=== PATIENT | female | born 1945 | race Caucasian/White ===

== ENCOUNTER 2023-12-16 13:35 | Outpatient (AMB) | payer MEDICARE, SELFPAY ==
[2023-12-16 13:38] VITALS: BP 132/70; PULSE 86; O2SAT 97; BMI 24.8
--- NOTE | 2023-12-16 13:38 | MHC.PC.OV ---
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 Allergies metoclopramide [From Reglan] Adverse Reaction (Severe, Verified 12/16/23 13:42) Anxiety and Fatigue Medication List - Last Reconciled 12/16/23 by Azra Abreu MD calcium carbonate (Calcium) 600 mg PO DAILY cholecalciferol (vitamin D3) 25 mcg PO DAILY losartan-hydrochlorothiazide 100-12.5 mg 1 tab PO DAILY lovastatin 20 mg PO DAILY meloxicam 7.5 mg PO BID multivitamin 1 tab PO DAILY omeprazole 20 mg PO DAILY Tobacco use date assessed: 12/16/23 Fall risk assessment: No Falls in past year Last assessed Fall Risk: 12/16/23 Dental Screening Dental Screen Date: 12/16/23 Did you have a dental visit in the last 12 months?: Yes Did you have a dental problem in the last 6 months where you did not have access to dental care?: No Was dental information given to patient?: Patient has dentist 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 Sister Pacemaker Sister Breast cancer Bladder cancer Sister Breast cancer Pacemaker Daughter No problems noted. Son No problems noted. Social History (Updated 12/16/23 @ 14:39 by Azra Abreu MD) Housing: Condominium Alcohol intake: current Comment: once Q 2 week glass of wine Patient Tobacco Use Status: Former Tobacco user Tobacco use type: Cigarette Years Smoked: quit 1969 e-Cigarette/Vaping Use: Never Used Second Hand Smoke Exposure: No service: No Current occupational status: retired Current occupational exposures/hazards: No Cognitive needs: No Hearing needs: No Vision needs: Yes Questionnaire PHQ-9 Over the last 2 weeks, how often have you been bothered by any of the following problems? 1. Little interest or pleasure in doing things: not at all 2. Feeling down, depressed, or hopeless: not at all 3. Trouble falling or staying asleep, or sleeping too much: not at all 4. Feeling tired or having little energy: not at all 5. Poor appetite or overeating: not at all 6. Feeling bad about yourself - or that you are a failure or have let yourself or your family down: not at all 7. Trouble concentrating on things, such as reading the newspaper or watching television: not at all 8. Moving or speaking so slowly that other people could have noticed. Or the opposite - being so fidgety or restless that you have been moving around a lot more than usual: not at all 9. Thoughts that you would be better off or of hurting yourself in some way: not at all Total score: 0 Depression Screening Interpretation: Negative Depression Screening Done: Yes Source: Developed by Drs. Talha Escobedo, Brea Thomas, Stalin Schultz and colleagues, with an educational carlyle from [employer]. Thrive Questionnaire Date Thrive assessed: 12/16/23 I am a: Patient What is your living situation today?: I have a steady place to live Within the past 12 months, did the food you bought not last and you didn't have the money to get more?: Never true Within the past 12 months, did you worry whether your food would run out before you got money to buy more?: Never true Do you have trouble paying for medicines?: No Do you have trouble getting transportation to medical appointments?: No Do you have trouble paying your heating and electricity bill?: No Do you have trouble taking care of your child, family member or friend?: No Do you have trouble with day-to-day activities such as bathing, preparing meals, shopping, managing finances, etc.?: No Are you currently unemployed and looking for a job?: No Are you interested in more education?: No Currently or been in a relationship where the following occur: no concerns reported THRIVE Score: 0 AUDIT C Alcohol Use Questionnaire (AUDIT-C) 1. How often do you have a drink containing alcohol?: 2-3 times a week 2. How many drinks containing alcohol do you have on a typical day when you are drinking?: 1 or 2 3. How often do you have six or more drinks on one occasion?: Never Total Score: 3 SHITAL-7 AMB Questionnaire SHITAL-7 Date SHITAL - 7 assessed: 12/16/23 Feeling nervous, anxious, or on edge: 0 = Not at all Not being able to stop or control worryin = Not at all Worrying too much about different things: 0 = Not at all Trouble relaxin = Not at all Being so restless that it is hard to sit still: 0 = Not at all Becoming easily annoyed or irritable: 0 = Not at all Feeling afraid as if something awful might happen: 0 = Not at all Total SHITAL-7 score (0-4 normal; 5-9 mild; 10-14 moderate; 15-21 severe): 0 Source: Developed by Drs. Talha Escobedo, Brea Thomas, Stalin Schultz and colleagues, with an educational carlyle from [employer]. Physical exam (Primary Care) Vital Signs: Last Vital Signs Pulse 86 12/16/23 13:38 BP 132/70 12/16/23 13:38 Pulse Ox 97 12/16/23 13:38 Oxygen Delivery Method Room Air 12/16/23 13:38 BMI result Body Mass Index 24.8 Tobacco/Smoking Status: Tobacco use Status Tobacco use date assessed 12/16/23 12/16/23 13:55 Patient Tobacco Use Status Former Tobacco user 12/16/23 14:39 Tobacco use type Cigarette 12/16/23 14:39 e-Cigarette/Vaping Use Never Used 12/16/23 14:39 PHQ-9: PHQ-9 Score PHQ-9: Total score 0 12/16/23 14:36 Depression Screening Interpretation: Negative Thrive Assessment: Date of Thrive Assessment Date Thrive assessed 12/16/23 12/16/23 13:55 Currently or been in a relationship where the following occur: no concerns reported Const General: alert; No acute distress Eyes Conjunctivae: conjunctivae normal Resp Auscultation: clear to auscultation bilaterally Cardio Rate: regular rate Rhythm: regular rhythm GI Inspection: Yes normal to inspection Extrem General: Yes normal to inspection and No edema Immunizations pneumoc 20-galilea conj-dip cr(PF) 0.5 mL IM syringe Performing Provider: Azra Abreu MD [facility] [place] [facility] Administered by: URIAH Keyes on 12/16/23 15:02 Dose Route Admin Location Dispensed Lot Number Expiration Date N[employer] 0.5 mL IM Left Deltoid 0.5 mL [id number] 10/31/24 [employer] VIS Given Date VIS Provided VIS Publication Date 12/16/23 Single Vaccine 21 Eligibility Eligibility Date Funding Source Not [facility] Eligible 12/16/23 Private Assessment and Plan Assessment & Plan (1) Hypertension: Code(s): I10 - Essential (primary) hypertension Plan: Continue with blood pressure medication. Decrease salt intake and exercise presently on losartan hydrochlorothiazide. (2) GERD (gastroesophageal reflux disease): Code(s): K21.9 - Gastro-esophageal reflux disease without esophagitis Plan: Avoid the foods that causes that usually spicy foods, tomato products, juices, coffee, soda and foods that your sensitive to. After eating do not lie down, allow 3-4 hours before in lie down. And keep the head of bed above 30 degrees to avoid the acid from going up. (3) Hypercholesterolemia: Code(s): E78.00 - Pure hypercholesterolemia, unspecified Plan: Avoid fried foods, chicken skin, eggs, butter margarine, pastries and meat. Be it pork or beef they have a lot of cholesterol presently on lovastatin 20 mg once a day (4) Osteoporosis: Comment: 06/2012 Code(s): M81.0 - Age-related osteoporosis without current pathological fracture (5) Impaired fasting blood sugar: Code(s): R73.01 - Impaired fasting glucose (6) Osteoarthritis: Comment: hand, knee elbow Code(s): M19.90 - Unspecified osteoarthritis, unspecified site (7) Breast cancer screening by mammogram: Code(s): Z12.31 - Encounter for screening mammogram for malignant neoplasm of breast Orders: Orders Pneumococcal 20 Immunization Today Z23 - Encounter for immunization MM tomosynthesis screening BI Today Z12.31 - Encounter for screening mammogram for malignant neoplasm of breast Medications: New losartan-hydrochlorothiazide 100-12.5 mg 1 tab PO DAILY 90 tabs 2RF I10 - Essential (primary) hypertension meloxicam 7.5 mg PO BID 90 tabs 2RF M19.90 - Unspecified osteoarthritis, unspecified site pneumoc 20-galilea conj-dip cr(PF) 0.5 mL IM ONCE 0.5 mL 0RF Z23 - Encounter for immunization lovastatin 20 mg PO DAILY 90 tabs 2RF E78.00 - Pure hypercholesterolemia, unspecified omeprazole 20 mg PO DAILY 90 caps 2RF K21.9 - Gastro-esophageal reflux disease without esophagitis Coding Level of Care Code New Pt Level 4 (79342) Diagnoses Hypertension I10 GERD (gastroesophageal reflux disease) K21.9 Hypercholesterolemia E78.00 Osteoporosis M81.0 Impaired fasting blood sugar R73.01 Osteoarthritis M19.90 Breast cancer screening by mammogram Z12.31
== END 2023-12-16 15:07 | disposition home or self-care (01) ==
PROVIDERS: PCP Internal Medicine; Visit Provider Internal Medicine
DX: I10 Essential (primary) hypertension (principal); K21.9 Gastro-esophageal reflux disease without esophagitis; E78.00 Pure hypercholesterolemia, unspecified; M81.0 Age-related osteoporosis without current pathological fracture; R73.01 Impaired fasting glucose; M19.90 Unspecified osteoarthritis, unspecified site; Z12.31 Encounter for screening mammogram for malignant neoplasm of breast; Z23 Encounter for immunization
CPT/HCPCS: 90471; 90677; 99204

== ENCOUNTER 2023-12-30 08:13 | Outpatient (REF) | payer MEDICARE, SELFPAY ==
--- NOTE | ~2023-12-30 | MM_ITS ---
EXAMINATION: MM SCREENING DIGITAL BREAST TOMOSYNTHESIS, BILATERAL CLINICAL INFORMATION: Screening. Asymptomatic. The patient is status post benign right excision in the remote past. COMPARISON: Mammography: This study is compared with prior exams dating back to 2019. TECHNIQUE: Digital breast tomosynthesis is performed in both the craniocaudal and mediolateral oblique views along with computer-aided detection (CAD). Synthesized 2D images are generated from the tomosynthesis. FINDINGS: There are scattered areas of fibroglandular density (ACR BI-RADS breast composition Category b). There are no significant masses, abnormal calcifications, or other abnormalities. There is mild postsurgical change in the retroareolar region of the right breast from prior remote benign excision. MM/MM tomosynthesis screening BI IMPRESSION: No mammographic evidence of malignancy. ASSESSMENT: BI-RADS BI-RADS 2 - Benign Findings RECOMMENDATION: Routine annual mammography screening. 1 year F/U This examination should not preclude the clinical evaluation of a suspicious palpable abnormality. This patient's information was entered into a reminder system with a target due date for their next mammogram.
== END 2023-12-30 08:14 | disposition home or self-care (01) ==
LOC: HO.MAMMO 08:13
PROVIDERS: PCP Internal Medicine; Visit Provider Internal Medicine
DX: Z12.31 Encounter for screening mammogram for malignant neoplasm of breast (principal)
CPT/HCPCS: 77063; 77067

== ENCOUNTER → 2023-12-30 08:30 | Outpatient (BNV) | payer MEDICARE, SELFPAY | PROVIDERS: PCP Internal Medicine; Visit Provider Radiology Diagnostic Radiology | DX: Z12.31 Encounter for screening mammogram for malignant neoplasm of breast (principal) | CPT/HCPCS: 77063; 77067 ==

== ENCOUNTER 2024-05-25 11:24 | Outpatient (AMB) | payer MEDICARE, SELFPAY ==
[2024-05-25 11:26] VITALS: BP 144/88; PULSE 77; O2SAT 97; BMI 25.2
--- NOTE | 2024-05-25 11:26 | MHC.PC.OV ---
Vital Signs 05/25/24 11:26 Height 4 ft 11 in Weight 125 lb BMI 25.2 BP 144/88 H Blood Pressure Location Lt brachial Position Sitting Pulse 77 Pulse Source Pulse Oximeter Pulse Oximetry (%) 97 Oxygen Delivery Method Room Air Intake Visit Reasons: PE Assistant Commissioner Required: No Accompanied by: Self / Same As Patient Allergies metoclopramide [From Reglan] Adverse Reaction (Severe, Verified 05/25/24 11:37) Anxiety and Fatigue Medication List - Last Reconciled 05/25/24 by Livier Rios PA-C calcium carbonate (Calcium 600) 600 mg PO DAILY cholecalciferol (vitamin D3) 25 mcg PO DAILY losartan-hydrochlorothiazide 100-12.5 mg 1 tab PO DAILY lovastatin 20 mg PO DAILY meloxicam 7.5 mg PO BID multivitamin 1 tab PO DAILY omeprazole 20 mg PO DAILY Tobacco use date assessed: 12/16/23 Fall risk assessment: No Falls in past year Last assessed Fall Risk: 05/25/24 Dental Screening Dental Screen Date: 12/16/23 HPI PE HPI Details 78-year-old female with past medical history of hypertension, GERD, hypercholesterolemia, peptic ulcer disease, impaired glucose tolerance last seen by Dr. Abreu coming in for annual exam. Patient completed mammogram 01/26/2024 BI-RADS 2 follow up in 1 year. She tells us she is feeling generally well prior to leaving [place] she did have a hearing test that showed borderline hearing loss but does not feel she has not issue with hearing at this time. She walks 2-3 times per week for exercise. She completed her bone density scan in 2022 in [place]. She does mentioned her blood pressures at home have been in the 100s to 120s systolic and 60s to 80s diastolic and would like to take off the hydrochlorothiazide as it increases the frequency of urination. 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 Sister Pacemaker Sister Breast cancer Bladder cancer Sister Breast cancer Pacemaker Daughter No problems noted. Son No problems noted. Social History Housing: Condominium Alcohol intake: current Comment: once Q 2 week glass of wine Patient Tobacco Use Status: Former Tobacco user Tobacco use type: Cigarette Years Smoked: quit 1970 e-Cigarette/Vaping Use: Never Used Second Hand Smoke Exposure: No service: No Current occupational status: retired Current occupational exposures/hazards: No Cognitive needs: No Hearing needs: No Vision needs: Yes Questionnaire PHQ-9 Over the last 2 weeks, how often have you been bothered by any of the following problems? 1. Little interest or pleasure in doing things: not at all 2. Feeling down, depressed, or hopeless: not at all 3. Trouble falling or staying asleep, or sleeping too much: not at all 4. Feeling tired or having little energy: not at all 5. Poor appetite or overeating: not at all 6. Feeling bad about yourself - or that you are a failure or have let yourself or your family down: not at all 7. Trouble concentrating on things, such as reading the newspaper or watching television: not at all 8. Moving or speaking so slowly that other people could have noticed. Or the opposite - being so fidgety or restless that you have been moving around a lot more than usual: not at all 9. Thoughts that you would be better off or of hurting yourself in some way: not at all Total score: 0 Depression Screening Interpretation: Negative Depression Screening Done: Yes Source: Developed by Drs. Talha Escobedo, Brea Thomas, Stalin Schultz and colleagues, with an educational carlyle from [employer] acquired by [employer]. Thrive Questionnaire Date Thrive assessed: 05/23/24 I am a: Patient What is your living situation today?: I have a steady place to live Within the past 12 months, did the food you bought not last and you didn't have the money to get more?: Never true Within the past 12 months, did you worry whether your food would run out before you got money to buy more?: Never true Do you have trouble paying for medicines?: No Do you have trouble getting transportation to medical appointments?: No Do you have trouble paying your heating and electricity bill?: No Do you have trouble taking care of your child, family member or friend?: No Do you have trouble with day-to-day activities such as bathing, preparing meals, shopping, managing finances, etc.?: Yes Are you currently unemployed and looking for a job?: No Are you interested in more education?: No Please select the resources that you would like help with: None Currently or been in a relationship where the following occur: No concerns reported THRIVE Score: 0 AUDIT C Alcohol Use Questionnaire (AUDIT-C) 1. How often do you have a drink containing alcohol?: Monthly or less 2. How many drinks containing alcohol do you have on a typical day when you are drinking?: 1 or 2 3. How often do you have six or more drinks on one occasion?: Never Total Score: 1 SHITAL-7 AMB Questionnaire SHITAL-7 Date SHITAL - 7 assessed: 12/16/23 Feeling nervous, anxious, or on edge: 0 = Not at all Not being able to stop or control worryin = Not at all Worrying too much about different things: 0 = Not at all Trouble relaxin = Not at all Being so restless that it is hard to sit still: 0 = Not at all Becoming easily annoyed or irritable: 0 = Not at all Feeling afraid as if something awful might happen: 0 = Not at all Total SHITAL-7 score (0-4 normal; 5-9 mild; 10-14 moderate; 15-21 severe): 0 Source: Developed by Drs. Talha Escobedo, Brea Thomas, Stalin Schultz and colleagues, with an educational carlyle from [employer] acquired by [employer]. Review of Systems Const Denies body aches, Denies fatigue, Denies fever(s), Denies frequent falls, Denies headache(s) and Denies weakness Eyes Reports no additional complaints, Denies change in vision and Reports requires corrective lenses ENT Denies dysphagia, Denies dizziness, Denies facial pain, Denies headache(s), Denies nasal congestion and Denies odynophagia Card Denies chest pain, Denies syncope, Denies irregular heart rhythm, Denies leg edema, Denies lightheadedness and Denies dyspnea Resp Denies cough and Denies dyspnea GI Denies constipation, Denies dysphagia, Denies dyspepsia, Denies diarrhea, Denies nausea, Denies odynophagia and Denies vomiting Denies urinary frequency, Denies dysuria, Denies urinary hesitancy and Denies urinary urgency Musc Denies back pain and Denies myalgias Skin/Breast Reports system reviewed and no additional complaints, except as documented Neuro Denies dizziness, Denies syncope, Denies frequent falls, Denies headache(s) and Denies weakness Psych Reports no additional complaints Endo Denies fatigue Physical exam (Primary Care) Vital Signs: Last Vital Signs Pulse 77 05/25/24 11:26 BP 144/88 H 05/25/24 11:26 Pulse Ox 97 05/25/24 11:26 Oxygen Delivery Method Room Air 05/25/24 11:26 BMI result Body Mass Index 25.2 Tobacco/Smoking Status: Tobacco use Status Tobacco use date assessed 12/16/23 05/25/24 11:31 Patient Tobacco Use Status Former Tobacco user 05/25/24 11:31 Tobacco use type Cigarette 05/25/24 11:31 e-Cigarette/Vaping Use Never Used 05/25/24 11:31 PHQ-9: PHQ-9 Score PHQ-9: Total score 0 05/25/24 11:31 Depression Screening Interpretation: Negative Thrive Assessment: Date of Thrive Assessment Date Thrive assessed 05/23/24 05/25/24 11:31 Currently or been in a relationship where the following occur: No concerns reported Const General: cooperative, healthy appearing, comfortable and no acute distress Orientation/consciousness: patient oriented x3 HENMT Head: Yes normocephalic Ears: hearing grossly normal bilaterally, external ears normal, TM's normal bilaterally and EAC's normal General nose exam: Normal external nose present Face and sinus: Yes normal facial exam and Yes sinuses nontender Mouth: Normal oral and palatal mucosa present and tongue normal Throat: Yes posterior oropharynx normal Eyes General: appearance normal, both eyes and all related structures Conjunctivae: conjunctivae normal Pupils: Equal, round and reactive pupils present EOM: EOMs intact bilaterally and No Nystagmus present Neck Neck: Yes normal visual inspection, Yes full ROM and Yes no lymphadenopathy Chest Chest palpation & inspection: normal inspection of the chest Resp Effort & Inspection: normal respiratory effort Auscultation: clear to auscultation bilaterally, no crackles, no rales, no rhonchi, no wheezes and breath sounds present Cardio Rate: regular rate Rhythm: regular rhythm Peripheral pulses: radial pulses present and dorsalis pedis present GI Inspection: Yes normal to inspection and No Abdominal wall edema Palpation (GI): Soft to palpation, not firm and nontender Auscultation: normal bowel sounds Rectal Exam - Female: deferred General: Yes no CVA tenderness Back/Spine/Pelvis Back: no CVA tenderness Skin General skin exam: no rashes or lesions noted Neuro General: patient oriented x3 Cranial nerves: Yes Equal, round and reactive pupils present, Yes Midline tongue present, Yes Ability to bilaterally elevate shoulders present and No Nystagmus present Gait exam (Neuro): Normal gait present Extrem General: Yes normal to inspection, Yes full ROM, No no pedal edema and No edema Psych Speech and movement: Normal speech and movement present Affect: normal affect Insight: Good insight present (Psych) Judgement: Good judgement present (Psych) Assessment and Plan Assessment & Plan (1) Breast cancer screening by mammogram: Code(s): Z12.31 - Encounter for screening mammogram for malignant neoplasm of breast Plan: Completed January 2024 BI-RADS 2 follow up in 1 year. (2) Osteoarthritis: Comment: hand, knee elbow Code(s): M19.90 - Unspecified osteoarthritis, unspecified site Plan: No concerns at this time continue taking meloxicam twice daily as needed. (3) Impaired fasting blood sugar: Code(s): R73.01 - Impaired fasting glucose Plan: Decrease the amount of carbohydrates such as pasta, bread, rice, and potatoes and limit the amount of sweets. Although fruits are generally healthy they should be eaten in moderation as they are still high in sugar. Hemoglobin A1c goal of less than 7%. Ordered for updated blood work and not currently on medical management. (4) Osteoporosis: Comment: 06/2012 Code(s): M81.0 - Age-related osteoporosis without current pathological fracture Plan: Continue on calcium and vitamin D3 supplement and will be due for bone density scan next year. (5) Hypercholesterolemia: Code(s): E78.00 - Pure hypercholesterolemia, unspecified Plan: Ordered for updated blood work. Avoid foods that are high in cholesterol such as red meat, fried foods, eggs and baked goods. Triglyceride goal of less than 150 and LDL goal of less than 100. Continue on lovastatin 20 mg daily. (6) GERD (gastroesophageal reflux disease): Code(s): K21.9 - Gastro-esophageal reflux disease without esophagitis Plan: Avoid trigger foods such as citrus, tomato products, soda, caffeine, spicy foods and other foods that may be irritating to your stomach. Avoid laying flat 3-4 hours after eating and elevate the head of the bed 30 degrees to prevent acid from moving into the esophagus. Continue on omeprazole. (7) Hypertension: Code(s): I10 - Essential (primary) hypertension Plan: Blood pressures at home have been in the 100s to 120 systolic and 60s to 80s diastolic. She did provide us with a list of blood pressures today which have all been within range. We will discontinue hydrochlorothiazide at patient request. Continue to monitor blood pressures at home and follow up in 1 month for re-evaluation. Continue on losartan 100 mg p.o. daily. (8) Annual physical exam: Code(s): Z00.00 - Encounter for general adult medical examination without abnormal findings Plan: Patient is up-to-date on all routine screenings and vaccinations for her age. Updated blood work ordered and we will follow up in 1 month for repeat blood pressure check. Plan This note was constructed using voice recognition software. While every effort has been made to ensure accuracy and office helper clerical, still areas may have been included sometimes these areas may affect the content or meeting of the given symptoms. Total time spent caring for the patient today was 30 minutes. This includes time spent before the visit reviewing the chart, time spent during the visit, and time spent after the visit and documentation. Orders: Orders Comprehensive Met. Panel Today Z00.00 - Encounter for general adult medical examination without abnormal findings Free T4 (Free Thyroxine) Today Z00.00 - Encounter for general adult medical examination without abnormal findings TSH reflex Free T4 Today Z00.00 - Encounter for general adult medical examination without abnormal findings UA CC w/rflx Micro + Cult Today R35.89 - Other polyuria Vitamin B12 and Folate Today Z00.00 - Encounter for general adult medical examination without abnormal findings Vitamin D 25-OH (D2 and D3) Today Z00.00 - Encounter for general adult medical examination without abnormal findings Complete Blood Count Auto Diff Today Z00.00 - Encounter for general adult medical examination without abnormal findings Lipid Panel Today Z00.00 - Encounter for general adult medical examination without abnormal findings Hemoglobin A1c Today Z00.00 - Encounter for general adult medical examination without abnormal findings Medications: New losartan 100 mg PO DAILY 30 tabs 0RF Refilled meloxicam 7.5 mg PO BID 180 tabs 2RF M19.90 - Unspecified osteoarthritis, unspecified site On Hold losartan-hydrochlorothiazide 100-12.5 mg Hold Comment: Dose Change 1 tab PO DAILY 90 tabs 2RF I10 - Essential (primary) hypertension Coding Level of Care Code Est Pt Prev Care >65y(79283) Diagnoses Breast cancer screening by mammogram Z12.31 Osteoarthritis M19.90 Impaired fasting blood sugar R73.01 Osteoporosis M81.0 Hypercholesterolemia E78.00 GERD (gastroesophageal reflux disease) K21.9 Hypertension I10 Annual physical exam Z00.00
== END 2024-05-25 11:58 | disposition home or self-care (01) ==
PROVIDERS: PCP Internal Medicine
DX: Z12.31 Encounter for screening mammogram for malignant neoplasm of breast (principal); M19.90 Unspecified osteoarthritis, unspecified site; R73.01 Impaired fasting glucose; M81.0 Age-related osteoporosis without current pathological fracture; E78.00 Pure hypercholesterolemia, unspecified; K21.9 Gastro-esophageal reflux disease without esophagitis; I10 Essential (primary) hypertension; Z00.00 Encounter for general adult medical examination without abnormal findings

== ENCOUNTER → 2024-05-25 11:24 | Outpatient (BNVA) | payer MEDICARE, SELFPAY | PROVIDERS: PCP Internal Medicine ==

== ENCOUNTER 2024-06-02 10:10 | Outpatient (REF) | payer MEDICARE, SELFPAY ==
[2024-06-02 10:37] LABS: MANUAL DIFF FLAG NO
[2024-06-02 10:54] LABS: Basophils Percent Auto 0.4 % (0-2); Eosinophils Absolute Auto 0.6 X10*3/uL (0.0-0.4); Eosinophils Percent Auto 7.7 % (0-4); Hematocrit 36.4 % (37.0-47.0); Hemoglobin 12.6 g/dl (12.0-16.0); Imm Gran Abs Auto 0.02 X10*3/uL (0.00-0.03); Imm Gran Pct Auto 0.3 % (0.0-0.4); Lymphocytes Absolute Auto 1.7 X10*3/uL (1.2-4.9); Lymphocytes Percent Auto 22.7 % (20-40); Mean Corpuscular HGB Conc 34.6 g/dl (31.0-35.0); Mean Corpuscular Hemoglobin 33.4 pg (27.0-33.0); Mean Corpuscular Volume 96.6 fL (80.0-98.0); Mean Platelet Volume 10.7 fL (9.4-12.3); Monocytes Absolute Auto 0.7 X10*3/uL (0.1-1.2); Monocytes Percent Auto 9.9 % (2-11); Neutrophils Absolute Auto 4.4 x10*3/uL (2.0-8.3); Platelet Count 338 X10*3/uL (160-400); Red Blood Count 3.77 X10*6/uL (4.20-5.50); Red Cell Distribution Width 13.1 % (11.0-16.0); White Blood Count 7.4 X10*3/uL (4.8-10.8)
[2024-06-02 10:56] LABS: Estimated Average Glucose 117 mg/dL; Hemoglobin A1C 121.6147 umol/L; Hemoglobin A1c % 5.7 % (<6.0); Total Hemoglobin (HGBA1C) 3123.6601 umol/L
[2024-06-02 10:57] LABS: Appearance Urine Clear; Color Urine Yellow; Glucose Urine UA Negative (Negative); Leukocyte Esterase Urine Negative (Negative); Nitrite Urine Negative (Negative); Specific Gravity - Urine 1.015 (1.005-1.025); UMIC TRIGGER UACC YES; Urine Blood Trace (Negative); Urine Ketones Negative (Negative); Urine Protein Negative (Neg-Trace)
[2024-06-02 11:03] LABS: Bacteria Urine None Seen (None Seen); Hyaline Casts Urine 0-2 /LPF (0-2); Squamous Epithelial Cell Urine 0-2 /HPF (0-2); WBC Urine 0-5 /HPF (0-5)
[2024-06-02 11:09] LABS: Alanine Aminotransferase 18 U/L (0-31); Albumin Level 4.3 g/dL (3.5-5.0); Alkaline Phosphatase 69 U/L (39-117); Anion Gap 13 (12-20); Aspartate Amino Transferase 26 U/L (5-31); Bilirubin Total 0.6 mg/dL (0.0-1.0); Blood Urea Nitrogen 28 mg/dL (9-16); Calcium 10.3 mg/dL (8.4-10.2); Carbon Dioxide 25 mmol/L (22-29); Chloride 109 mmol/L (96-108); Cholesterol 182 mg/dL (<200); Estimated Glomerular Filt Rate 50; Glucose Random 103 mg/dL (60-115); HDL Cholesterol 64 mg/dL (>40); LDL Cholesterol Calculated 94 mg/dL (<100); Potassium 4.4 mmol/L (3.3-5.1); Sodium 143 mmol/L (135-145); Triglycerides 123 mg/dL (<150)
[2024-06-02 11:29] LABS: Free T4 (Free Thyroxine) 1.16 ng/dL (0.71-1.85); TSH reflex Free T4 0.93 uIU/mL (0.32-4.0)
[2024-06-02 11:40] LABS: Folate 16.7 ng/mL (> or = 4.0); Vitamin B12 467 pg/mL (200-900)
[2024-06-07 16:04] LABS: Vitamin D 25-OH, D2 <4 ng/mL; Vitamin D 25-OH, D3 49 ng/mL; Vitamin D 25-OH, Total 49 ng/mL (30-100)
== END 2024-06-02 10:11 | disposition home or self-care (01) ==
LOC: HO.LAB 10:10
DX: Z00.00 Encounter for general adult medical examination without abnormal findings (principal); R35.89 Other polyuria; Z13.1 Encounter for screening for diabetes mellitus
CPT/HCPCS: 36415; 80053; 80061; 81001; 82306; 82607; 82746; 83036; 84439; 84443; 85025

== ENCOUNTER 2024-06-24 09:38 | Outpatient (AMB) | payer MEDICARE, SELFPAY ==
[2024-06-24 09:40] VITALS: BP 140/82; PULSE 86; O2SAT 98; BMI 25.2
--- NOTE | 2024-06-24 09:40 | MHC.PC.OV ---
Vital Signs 06/24/24 09:40 Height 4 ft 11 in Weight 125 lb BMI 25.2 BP 140/82 H Blood Pressure Location Lt brachial Position Sitting Pulse 86 Pulse Source Pulse Oximeter Pulse Oximetry (%) 98 Oxygen Delivery Method Room Air Intake Visit Reasons: f/u HTN med change Allergies metoclopramide [From Reglan] Adverse Reaction (Severe, Verified 06/24/24 09:42) Anxiety and Fatigue Medication List - Last Reconciled 06/24/24 by Livier Rios PA-C calcium carbonate (Calcium 600) 600 mg PO DAILY cholecalciferol (vitamin D3) 25 mcg PO DAILY losartan 100 mg PO DAILY losartan-hydrochlorothiazide 100-12.5 mg 1 tab PO DAILY lovastatin 20 mg PO DAILY meloxicam 7.5 mg PO BID multivitamin 1 tab PO DAILY omeprazole 20 mg PO DAILY Tobacco use date assessed: 12/16/23 Dental Screening Dental Screen Date: 12/16/23 HPI f/u HTN med change HPI Details 78-year-old female with past medical history of hypertension, GERD, hypercholesterolemia, peptic ulcer disease, impaired glucose tolerance last seen May 26 coming in for follow up.? At her last appointment hydrochlorothiazide was discontinued due to low normal pressures at home and she is here for re-evaluation. Patient brought in her blood pressure log today which has many values in the 140s to 150 systolic range with normal diastolic numbers. She mentioned she has been increasingly stressed and has occasional chest tightness that typically will resolve with distractions. Denies any chest pain or shortness of breath. 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 Sister Pacemaker Sister Breast cancer Bladder cancer Sister Breast cancer Pacemaker Daughter No problems noted. Son No problems noted. Social History Housing: Condominium Alcohol intake: current Comment: once Q 2 week glass of wine Patient Tobacco Use Status: Former Tobacco user Tobacco use type: Cigarette Years Smoked: quit 1969 e-Cigarette/Vaping Use: Never Used Second Hand Smoke Exposure: No service: No Current occupational status: retired Current occupational exposures/hazards: No Cognitive needs: No Hearing needs: No Vision needs: Yes Questionnaire Thrive Questionnaire Date Thrive assessed: 05/23/24 I am a: Patient What is your living situation today?: I have a steady place to live Within the past 12 months, did the food you bought not last and you didn't have the money to get more?: Never true Within the past 12 months, did you worry whether your food would run out before you got money to buy more?: Never true Do you have trouble paying for medicines?: No Do you have trouble getting transportation to medical appointments?: No Do you have trouble paying your heating and electricity bill?: No Do you have trouble taking care of your child, family member or friend?: No Do you have trouble with day-to-day activities such as bathing, preparing meals, shopping, managing finances, etc.?: Yes Are you currently unemployed and looking for a job?: No Are you interested in more education?: No Please select the resources that you would like help with: None Currently or been in a relationship where the following occur: No concerns reported THRIVE Score: 0 SHITAL-7 AMB Questionnaire SHITAL-7 Date SHITAL - 7 assessed: 12/16/23 Source: Developed by Drs. Talha Escobedo, Brea Thomas, Stalin Schultz and colleagues, with an educational carlyle from [employer]. Review of Systems Const Denies body aches, Denies fever(s) and Denies headache(s) Eyes Reports no additional complaints ENT Denies dizziness and Denies headache(s) Card Denies chest pain, Denies edema, Denies lightheadedness and Denies dyspnea Resp Denies cough and Denies dyspnea GI Denies abdominal pain, Denies nausea and Denies vomiting Reports no additional complaints Musc Reports no additional complaints and Denies abnormal gait Skin/Breast Reports system reviewed and no additional complaints, except as documented Neuro Denies abnormal gait, Denies dizziness and Denies headache(s) Psych Details: Occasional anxiety and chest tightness Physical exam (Primary Care) Vital Signs: Last Vital Signs Pulse 86 06/24/24 09:40 BP 140/82 H 06/24/24 09:40 Pulse Ox 98 06/24/24 09:40 Oxygen Delivery Method Room Air 06/24/24 09:40 BMI result Body Mass Index 25.2 Tobacco/Smoking Status: Tobacco use Status Tobacco use date assessed 12/16/23 06/24/24 09:42 Patient Tobacco Use Status Former Tobacco user 06/24/24 09:42 Tobacco use type Cigarette 06/24/24 09:42 e-Cigarette/Vaping Use Never Used 06/24/24 09:42 Thrive Assessment: Date of Thrive Assessment Date Thrive assessed 05/23/24 06/24/24 09:42 Currently or been in a relationship where the following occur: No concerns reported Const General: cooperative, healthy appearing, comfortable and no acute distress Orientation/consciousness: patient oriented x3 HENMT Head: Yes normocephalic Ears: hearing grossly normal bilaterally General nose exam: Normal external nose present Eyes General: appearance normal, both eyes and all related structures Conjunctivae: conjunctivae normal Neck Neck: Yes full ROM and Yes no lymphadenopathy Resp Effort & Inspection: normal respiratory effort Auscultation: clear to auscultation bilaterally, no crackles, no rales, no rhonchi and no wheezes Cardio Rate: regular rate Rhythm: regular rhythm Skin General skin exam: no rashes or lesions noted Neuro General: patient oriented x3 Gait exam (Neuro): Normal gait present Extrem General: Yes normal to inspection, Yes full ROM and No edema Psych Affect: normal affect Attitude: cooperative Insight: Good insight present (Psych) Judgement: Good judgement present (Psych) Office Procedures Flu Questionnaire Does the patient have a severe egg allergy?: No Does the patient have severe life threatening allergies?: No Does the patient have a fever or illness today?: No Has the patient ever had Guillain-[place] Syndrome?: No Has the patient ever had any past reaction to a flu shot?: No Immunizations Fluarix Triv [id number] (PF) 45 mcg (15 mcg x 3)/0.5 mL IM syringe Performing Provider: Livier Rios PA-C Performing Location: [facility] [place] [facility] Administered by: URIAH Keyes on 06/24/24 09:45 Dose Route Admin Location Dispensed Lot Number Expiration Date NDC Trackman 0.5 mL IM Left Deltoid 0.5 mL [id number] 03/01/25 [id number] [employer] VIS Given Date VIS Provided VIS Publication Date 06/24/24 Single Vaccine 21 Eligibility Eligibility Date Funding Source Not VF Eligible 06/24/24 Private Coding Level of Care Code Est Pt Level 3 (11079) Diagnoses Hypertension I10 GERD (gastroesophageal reflux disease) K21.9 Hypercholesterolemia E78.00 Impaired fasting blood sugar R73.01 Anxiety F41.9 Assessment & Plan Assessment & Plan (1) Hypertension: Code(s): I10 - Essential (primary) hypertension Category: Medical Plan: Blood pressure elevated on exam and with at home readings. We will resume lisinopril-hydrochlorothiazide combination pill and recheck in 3 months. Avoid salt intake and encourage healthy diet and regular exercise. (2) GERD (gastroesophageal reflux disease): Code(s): K21.9 - Gastro-esophageal reflux disease without esophagitis Category: Medical Plan: Avoid trigger foods such as citrus, tomato products, soda, caffeine, spicy foods and other foods that may be irritating to your stomach. Avoid laying flat 3-4 hours after eating and elevate the head of the bed 30 degrees to prevent acid from moving into the esophagus. Continue on omeprazole (3) Hypercholesterolemia: Code(s): E78.00 - Pure hypercholesterolemia, unspecified Category: Medical Plan: Avoid foods that are high in cholesterol such as red meat, fried foods, eggs and baked goods. Triglyceride goal of less than 150 and LDL goal of less than 100. Continue on lovastatin 20 mg (4) Impaired fasting blood sugar: Code(s): R73.01 - Impaired fasting glucose Category: Medical Plan: Decrease the amount of carbohydrates such as pasta, bread, rice, and potatoes and limit the amount of sweets. Although fruits are generally healthy they should be eaten in moderation as they are still high in sugar. (5) Anxiety: Code(s): F41.9 - Anxiety disorder, unspecified Category: Medical Plan: Patient has been having increased anxiety and chest tightness surrounding family and friends. Denies need for counseling or medication at this time. Advised patient to continue to monitor the chest tightness which typically resolves with distractions and reach out to the office if this becomes persistent. Plan This note was constructed using voice recognition software. While every effort has been made to ensure accuracy and strategic account executive, still areas may have been included sometimes these areas may affect the content or meeting of the given symptoms. Total time spent caring for the patient today was 30 minutes. This includes time spent before the visit reviewing the chart, time spent during the visit, and time spent after the visit and documentation. Orders: Orders Influenza [id number] Immunization Today Livier Rios PA-C Z23 - Encounter for immunization Medications: Discontinued losartan Discontinued Reason: Patient no longer taking 100 mg PO DAILY 30 tabs 0RF Resumed losartan-hydrochlorothiazide 100-12.5 mg 1 tab PO DAILY 90 tabs 2RF Livier Rios PA-C I10 - Essential (primary) hypertension losartan-hydrochlorothiazide 100-12.5 mg 1 tab PO DAILY 90 tabs 2RF Azra Abreu MD I10 - Essential (primary) hypertension
== END 2024-06-24 10:14 | disposition home or self-care (01) ==
PROVIDERS: PCP Internal Medicine
DX: I10 Essential (primary) hypertension (principal); K21.9 Gastro-esophageal reflux disease without esophagitis; E78.00 Pure hypercholesterolemia, unspecified; R73.01 Impaired fasting glucose; F41.9 Anxiety disorder, unspecified; Z23 Encounter for immunization

== ENCOUNTER → 2024-06-24 09:38 | Outpatient (BNVA) | payer MEDICARE, SELFPAY | PROVIDERS: PCP Internal Medicine | DX: I10 Essential (primary) hypertension (principal); K21.9 Gastro-esophageal reflux disease without esophagitis; E78.00 Pure hypercholesterolemia, unspecified; R73.01 Impaired fasting glucose; F41.9 Anxiety disorder, unspecified; Z79.899 Other long term (current) drug therapy; Z23 Encounter for immunization | CPT/HCPCS: 90471; 90656; 99212 ==

== ENCOUNTER 2024-09-24 08:56 | Outpatient (AMB) | payer OTHER, SELFPAY ==
[2024-09-24 09:05] VITALS: BP 122/78; PULSE 93; O2SAT 99; BMI 25.7
--- NOTE | 2024-09-24 09:05 | A.OFFPC_ITS ---
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 Action Required: No Accompanied by: Self / Same As Patient Allergies metoclopramide [From Reglan] Adverse Reaction (Severe, Verified 09/24/24 09:05) Anxiety and Fatigue Medication List - Last Reconciled 09/24/24 by Livier Rios PA-C calcium carbonate (Calcium 600) 600 mg PO DAILY cholecalciferol (vitamin D3) 25 mcg PO DAILY losartan-hydrochlorothiazide 100-12.5 mg 1 tab PO DAILY lovastatin 20 mg PO DAILY magnesium gluconate 1,000 mg PO BID meloxicam 7.5 mg PO BID omeprazole 20 mg PO DAILY Tobacco use date assessed: 09/24/24 Fall risk assessment: 1 Fall in past year Last assessed Fall Risk: 09/24/24 Dental Screening Dental Screen Date: 09/24/24 Did you have a dental visit in the last 12 months?: Yes Did you have a dental problem in the last 6 months where you did not have access to dental care?: No Was dental information given to patient?: Patient has dentist HPI f/u HTN HPI Details 78-year-old female with past medical his tory of hypertension, GERD, hypercholesterolemia, peptic ulcer disease, impaired glucose tolerance last seen 06/2024 coming in for follow up.? In her last visit lisinopril-hydrochlorothiazi de was continued. Today she tells us her blood pressure at home has been generally good in the 110 to 120 systolic region and 70-80 diastolic region. She will very rarely have lightheadedness typically once a month primarily in the morning that will resolve after a few minutes. She does mentioned that 2 days ago she slipped on ice landing on her back and hit her head in the snow. Since the fall she has not had any headache, nausea, vomiting, vision changes or any other symptoms. And denies any pain anywhere else. 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 Sister Pacemaker Sister Breast cancer Bladder cancer Sister Breast cancer Pacemaker Daughter No problems noted. Son No problems noted. Social History Housing: Condominium Alcohol intake: current Comment: once Q 2 week glass of wine Patient Tobacco Use Status: Former Tobacco user Tobacco use type: Cigarette Years Smoked: quit 1969 e-Cigarette/Vaping Use: Never Used Second Hand Smoke Exposure: No service: No Current occupational status: retired Current occupational exposures/hazards: No Cognitive needs: No Hearing needs: No Vision needs: Yes Questionnaire PHQ-9 Over the last 2 weeks, how often have you been bothered by any of the following problems? 1. Little interest or pleasure in doing things: not at all 2. Feeling down, depressed, or hopeless: not at all 3. Trouble falling or staying asleep, or sleeping too much: not at all 4. Feeling tired or having little energy: not at all 5. Poor appetite or overeating: not at all 6. Feeling bad about yourself - or that you are a failure or have let yourself or your family down: not at all 7. Trouble concentrating on things, such as reading the newspaper or watching television: not at all 8. Moving or speaking so slowly that other people could have noticed. Or the opposite - being so fidgety or restless that you have been moving around a lot more than usual: not at all 9. Thoughts that you would be better off or of hurting yourself in some way: not at all Total score: 0 Depression Screening Interpretation: Negative Depression Screening Done: Yes Source: Developed by Drs. Talha Escobedo, Brea Thomas, Stalin Schultz and colleagues, with an educational carlyle from [employer]. Thrive Questionnaire Date Thrive assessed: 09/24/24 I am a: Patient What is your living situation today?: I have a steady place to live Within the past 12 months, did the food you bought not last and you didn't have the money to get more?: Never true Within the past 12 months, did you worry whether your food would run out before you got money to buy more?: Never true Do you have trouble paying for medicines?: No Do you have trouble getting transportation to medical appointments?: No Do you have trouble paying your heating and electricity bill?: No Do you have trouble taking care of your child, family member or friend?: No Do you have trouble with day-to-day activities such as bathing, preparing meals, shopping, managing finances, etc.?: Yes Are you currently unemployed and looking for a job?: No Are you interested in more education?: No Please select the resources that you would like help with: None Currently or been in a relationship where the following occur: No concerns reported THRIVE Score: 0 AUDIT C Alcohol Use Questionnaire (AUDIT-C) 1. How often do you have a drink containing alcohol?: Monthly or less 2. How many drinks containing alcohol do you have on a typical day when you are drinking?: 1 or 2 3. How often do you have six or more drinks on one occasion?: Never Total Score: 1 SHITAL-7 AMB Questionnaire SHITAL-7 Date SHITAL - 7 assessed: 09/24/24 Feeling nervous, anxious, or on edge: 0 = Not at all Not being able to stop or control worryin = Not at all Worrying too much about different things: 0 = Not at all Trouble relaxin = Not at all Being so restless that it is hard to sit still: 0 = Not at all Becoming easily annoyed or irritable: 0 = Not at all Feeling afraid as if something awful might happen: 0 = Not at all Total SHITAL-7 score (0-4 normal; 5-9 mild; 10-14 moderate; 15-21 severe): 0 Source: Developed by Drs. Talha Escobedo, Brea Thomas, Stalin Schultz and colleagues, with an educational carlyle from [employer]. Review of Systems Const Denies body aches, Denies chills, Denies fever(s), Denies headache(s) and Denies poor appetite Eyes Reports no additional complaints ENT Denies dizziness and Denies headache(s) Card Denies chest pain, Denies syncope, Denies edema, Denies irregular heart rhythm, Denies lightheadedness and Denies dyspnea Resp Denies cough and Denies dyspnea GI Denies abdominal pain, Denies constipation, Denies diarrhea, Denies nausea and Denies vomiting Reports no additional complaints Musc Reports no additional complaints and Denies abnormal gait Skin/Breast Reports system reviewed and no additional complaints, except as documented Neuro Denies abnormal gait, Denies dizziness, Denies syncope and Denies headache(s) Psych Reports no additional complaints Physical exam (Primary Care) Vital Signs: Last Vital Signs Pulse 93 09/24/24 09:05 BP 122/78 09/24/24 09:05 Pulse Ox 99 09/24/24 09:05 Oxygen Delivery Method Room Air 09/24/24 09:05 BMI result Body Mass Index 25.7 Tobacco/Smoking Status: Tobacco use Status Tobacco use date assessed 09/24/24 09/24/24 09:07 Patient Tobacco Use Status Former Tobacco user 09/24/24 09:07 Tobacco use type Cigarette 09/24/24 09:07 e-Cigarette/Vaping Use Never Used 09/24/24 09:07 PHQ-9: PHQ-9 Score PHQ-9: Total score 0 09/24/24 09:21 Depression Screening Interpretation: Negative Thrive Assessment: Date of Thrive Assessment Date Thrive assessed 09/24/24 09/24/24 09:07 Currently or been in a relationship where the following occur: No concerns reported Const General: cooperative, healthy appearing, comfortable and no acute distress Orientation/consciousness: patient oriented x3 HENMT Other: No scalp, abrasion, swelling or bruising on the head. Head: Yes normocephalic Ears: hearing grossly normal bilaterally General nose exam: Normal external nose present Eyes General: appearance normal, both eyes and all related structures Conjunctivae: conjunctivae normal Neck Neck: Yes full ROM and Yes no lymphadenopathy Resp Effort & Inspection: normal respiratory effort Auscultation: clear to auscultation bilaterally, no crackles, no rales, no rhonchi and no wheezes Cardio Rate: regular rate Rhythm: regular rhythm Skin General skin exam: no rashes or lesions noted Neuro General: patient oriented x3 Gait exam (Neuro): Normal gait present Extrem General: Yes normal to inspection, Yes full ROM and No edema Psych Affect: normal affect Attitude: cooperative Insight: Good insight present (Psych) Judgement: Good judgement present (Psych) Coding Level of Care Code Est Pt Level 3 (54473) Diagnoses GERD (gastroesophageal reflux disease) K21.9 Hypertension I10 Hypercholesterolemia E78.00 Impaired fasting blood sugar R73.01 Assessment & Plan Assessment & Plan (1) GERD (gastroesophageal reflux disease): Code(s): K21.9 - Gastro-esophageal reflux disease without esophagitis Category: Medical Plan: Avoid trigger foods such as citrus, tomato products, soda, caffeine, spicy foods and other foods that may be irritating to your stomach. Avoid laying flat 3-4 hours after eating and elevate the head of the bed 30 degrees to prevent acid from moving into the esophagus. Continue on omeprazole (2) Hypertension: Code(s): I10 - Essential (primary) hypertension Category: Medical Plan: Continue on current blood pressure medication. Avoid salt intake and encourage healthy diet and regular exercise. Blood pressure at goal at home and in the office today. Continue on current medication regimen and follow up at next visit. (3) Hypercholesterolemia: Code(s): E78.00 - Pure hypercholesterolemia, unspecified Category: Medical Plan: Avoid foods that are high in cholesterol such as red meat, fried foods, eggs and baked goods. Triglyceride goal of less than 150 and LDL goal of less than 100. Continue on lovastatin (4) Impaired fasting blood sugar: Code(s): R73.01 - Impaired fasting glucose Category: Medical Plan: Decrease the amount of carbohydrates such as pasta, bread, rice, and potatoes and limit the amount of sweets. Although fruits are generally healthy they should be eaten in moderation as they are still high in sugar. Plan This note was constructed using voice recognition software. While every effort has been made to ensure accuracy and speech and hearing clinic director, still areas may have been included sometimes these areas may affect the content or meeting of the given symptoms. Total time spent caring for the patient today was 20 minutes. This includes time spent before the visit reviewing the chart, time spent during the visit, and time spent after the visit and documentation.
== END 2024-09-24 09:37 | disposition home or self-care (01) ==
PROVIDERS: PCP Internal Medicine
DX: K21.9 Gastro-esophageal reflux disease without esophagitis (principal); I10 Essential (primary) hypertension; E78.00 Pure hypercholesterolemia, unspecified; R73.01 Impaired fasting glucose

== ENCOUNTER → 2024-09-24 08:56 | Outpatient (BNVA) | payer OTHER, SELFPAY | PROVIDERS: PCP Internal Medicine | DX: K21.9 Gastro-esophageal reflux disease without esophagitis (principal); I10 Essential (primary) hypertension; E78.00 Pure hypercholesterolemia, unspecified; R73.01 Impaired fasting glucose | CPT/HCPCS: 99212 ==

== ENCOUNTER 2025-01-04 07:37 | Outpatient (REF) | payer OTHER, SELFPAY | END 2025-01-04 07:38 | disposition home or self-care (01) | LOC: HO.MAMMO 07:37 | PROVIDERS: PCP Internal Medicine; Visit Provider Internal Medicine | DX: Z12.31 Encounter for screening mammogram for malignant neoplasm of breast (principal) | CPT/HCPCS: 77063; 77067 ==

== ENCOUNTER → 2025-01-04 08:00 | Outpatient (BNV) | payer OTHER, SELFPAY | PROVIDERS: PCP Internal Medicine; Visit Provider Internal Medicine | DX: Z12.31 Encounter for screening mammogram for malignant neoplasm of breast (principal) | CPT/HCPCS: 77063; 77067 ==

== ENCOUNTER 2025-05-31 10:16 | Outpatient (AMB) | payer OTHER, SELFPAY ==
[2025-05-31 10:32] VITALS: BP 122/70; PULSE 92; O2SAT 96; BMI 24.6
--- NOTE | 2025-05-31 10:32 | MHC.PC.OV ---
Vital Signs 05/31/25 10:32 Height 4 ft 11 in Weight 122 lb BMI 24.6 BP 122/70 Blood Pressure Location Lt brachial Position Sitting Pulse 92 Pulse Source Pulse Oximeter Pulse Oximetry (%) 96 Oxygen Delivery Method Room Air Intake Visit Reasons: Annual exam Allergies metoclopramide (From Reglan) Adverse Reaction (Severe, Verified 05/31/25 10:32) Anxiety and Fatigue Medication List - Last Reconciled 05/31/25 by Azra Abreu MD cholecalciferol (vitamin D3) 25 mcg PO DAILY coenzyme Q10 (CoQ-10) 100 mg PO DAILY losartan-hydrochlorothiazide 100-12.5 mg 1 tab PO DAILY lovastatin 20 mg PO DAILY meloxicam 7.5 mg PO BID omeprazole 20 mg PO DAILY Tobacco use date assessed: 09/24/24 Fall risk assessment: No Falls in past year Last assessed Fall Risk: 05/31/25 Dental Screening Dental Screen Date: 09/24/24 HPI Annual exam HPI Details R shoulder pain PFSH Medical History Diverticular disease 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 Sister Pacemaker Sister Breast cancer Bladder cancer Sister Breast cancer Pacemaker Daughter No problems noted. Son No problems noted. Social History (Updated 05/31/25 @ 10:59 by Azra Abreu MD) Housing: Condominium Alcohol intake: current Comment: once Q week glass of wine Patient Tobacco Use Status: Former Tobacco user Tobacco use type: Cigarette Years Smoked: quit 1969 e-Cigarette/Vaping Use: Never Used Second Hand Smoke Exposure: No service: No Current occupational status: retired Current occupational exposures/hazards: No Cognitive needs: No Hearing needs: No Vision needs: Yes Questionnaire PHQ-9 Over the last 2 weeks, how often have you been bothered by any of the following problems? 1. Little interest or pleasure in doing things: not at all 2. Feeling down, depressed, or hopeless: not at all 3. Trouble falling or staying asleep, or sleeping too much: not at all 4. Feeling tired or having little energy: not at all 5. Poor appetite or overeating: not at all 6. Feeling bad about yourself - or that you are a failure or have let yourself or your family down: not at all 7. Trouble concentrating on things, such as reading the newspaper or watching television: not at all 8. Moving or speaking so slowly that other people could have noticed. Or the opposite - being so fidgety or restless that you have been moving around a lot more than usual: not at all 9. Thoughts that you would be better off or of hurting yourself in some way: not at all Total score: 0 Source: Developed by Drs. Talha Escobedo, Brea Thomas, Stalin Schultz and colleagues, with an educational carlyle from [employer]. Thrive Questionnaire Date Thrive assessed: 05/24/25 I am a: Patient What is your living situation today?: I have a steady place to live Within the past 12 months, did the food you bought not last and you didn't have the money to get more?: Never true Within the past 12 months, did you worry whether your food would run out before you got money to buy more?: Never true Do you have trouble paying for medicines?: No Do you have trouble getting transportation to medical appointments?: No Do you have trouble paying your heating and electricity bill?: No Do you have trouble taking care of your child, family member or friend?: No Do you have trouble with day-to-day activities such as bathing, preparing meals, shopping, managing finances, etc.?: No Are you currently unemployed and looking for a job?: No Are you interested in more education?: No Please select the resources that you would like help with: None Currently or been in a relationship where the following occur: No concerns reported THRIVE Score: 0 AUDIT C Alcohol Use Questionnaire (AUDIT-C) 1. How often do you have a drink containing alcohol?: Monthly or less 2. How many drinks containing alcohol do you have on a typical day when you are drinking?: 1 or 2 3. How often do you have six or more drinks on one occasion?: Never Total Score: 1 SHITAL-7 AMB Questionnaire SHITAL-7 Date SHITAL - 7 assessed: 09/24/24 Feeling nervous, anxious, or on edge: 0 = Not at all Not being able to stop or control worryin = Not at all Worrying too much about different things: 0 = Not at all Trouble relaxin = Not at all Being so restless that it is hard to sit still: 0 = Not at all Becoming easily annoyed or irritable: 0 = Not at all Feeling afraid as if something awful might happen: 0 = Not at all Total SHITAL-7 score (0-4 normal; 5-9 mild; 10-14 moderate; 15-21 severe): 0 Source: Developed by Drs. Talha Escobedo, Brea Thomas, Stalin Schultz and colleagues, with an educational carlyle from [employer]. Review of Systems Const Denies poor appetite and Denies weakness Eyes Denies no additional complaints ENT Reports Normal hearing present, Denies dizziness, Denies nasal congestion, Denies tinnitus and Denies sore throat Card Denies chest pain, Denies syncope, Denies rapid heart rate and Denies dyspnea Resp Denies cough and Denies dyspnea GI Denies change in stool character, Reports constipation, Denies diarrhea, Denies nausea and Denies vomiting Denies urinary frequency, Denies difficulty voiding and Denies dysuria Neuro Reports Normal hearing present, Denies confusion, Denies dizziness, Denies syncope and Denies weakness Psych Denies confusion Physical exam (Primary Care) Vital Signs: Last Vital Signs Pulse 92 05/31/25 10:32 BP 122/70 05/31/25 10:32 Pulse Ox 96 05/31/25 10:32 Oxygen Delivery Method Room Air 05/31/25 10:32 BMI result Body Mass Index 24.6 Tobacco/Smoking Status: Tobacco use Status Tobacco use date assessed 09/24/24 05/31/25 10:38 Patient Tobacco Use Status Former Tobacco user 05/31/25 10:59 Tobacco use type Cigarette 05/31/25 10:59 e-Cigarette/Vaping Use Never Used 05/31/25 10:59 PHQ-9: PHQ-9 Score PHQ-9: Total score 0 05/31/25 10:55 Thrive Assessment: Date of Thrive Assessment Date Thrive assessed 09/22/25 09/29/25 10:38 Currently or been in a relationship where the following occur: No concerns reported Const General: No confusion Orientation/consciousness: No confusion HENMT Head: Yes normocephalic Ears: external ears normal and TM's normal bilaterally Face and sinus: Yes normal facial exam Mouth: moist mucous membranes Throat: Yes tonsils normal Eyes Conjunctivae: conjunctivae normal Pupils: Equal, round and reactive pupils present and Pupil accommodation reflex normal Direct Ophthalmoscopy: normal light reflex Neck Neck: No lymphadenopathy Thyroid: Thyroid normal Chest Chest palpation & inspection: normal inspection of the chest Resp Effort & Inspection: normal respiratory effort and no audible wheezes Auscultation: clear to auscultation bilaterally, no crackles, no wheezes and lung sounds not diminished Cardio Rate: regular rate Rhythm: regular rhythm Peripheral pulses: radial pulses present and dorsalis pedis present GI Palpation (GI): no masses Auscultation: normal bowel sounds and normoactive bowel sounds Rectal Exam - Female: deferred Skin General skin exam: no rashes or lesions noted Rashes: no rashes Neuro General: No confusion Cranial nerves: Yes Equal, round and reactive pupils present and Yes Normal hearing present Cognition (Neuro): normal cognition Gait exam (Neuro): Normal gait present Motor exam (neuro): 5/5 motor strength present throughout Deep tendon reflexes (DTR's): Right brachioradialis reflex intensity grade: 2+, Left brachioradialis reflex intensity grade: 2+, Right patellar reflex intensity grade: 2+ and Left patellar reflex intensity grade: 2+ Extrem General: No edema Coding Level of Care Code Est Pt Prev Care >65y(60633) Diagnoses Annual physical exam Z00.00 Hypertension I10 Hypercholesterolemia E78.00 Impaired fasting blood sugar R73.01 Osteoporosis M81.0 GERD (gastroesophageal reflux disease) K21.9 Right shoulder pain M25.511 Eczema L30.9 Assessment & Plan Assessment & Plan (1) Annual physical exam: Code(s): Z00.00 - Encounter for general adult medical examination without abnormal findings Category: Medical Plan: Patient is advised to eat healthy, keep well hydrated, keep active and have adequate sleep. (2) Hypertension: Code(s): I10 - Essential (primary) hypertension Category: Medical Plan: Continue with blood pressure medication. Decrease salt intake and exercise patient is on losartan hydrochlorothiazide 100/12.5 mg once a day (3) Hypercholesterolemia: Code(s): E78.00 - Pure hypercholesterolemia, unspecified Category: Medical Plan: Avoid fried foods, chicken skin, eggs, butter margarine, pastries and meat. Be it pork or beef they have a lot of cholesterol LDL goal of less than 130 and triglyceride of less than 150. (4) Impaired fasting blood sugar: Code(s): R73.01 - Impaired fasting glucose Category: Medical Plan: Decrease the amount of carbohydrate intake, pasta, bread, rice and potatoes are all sugar and that is aside from all the sweet stuff, remember that fruits are good but they are Sweet also. (5) Osteoporosis: Comment: 06/2012 Code(s): M81.0 - Age-related osteoporosis without current pathological fracture Category: Medical Plan: Patient on calcium and vitamin-D. Discussed about repeating bone density (6) GERD (gastroesophageal reflux disease): Code(s): K21.9 - Gastro-esophageal reflux disease without esophagitis Category: Medical Plan: Avoid the foods that causes that usually spicy foods, tomato products, juices, coffee, soda and foods that your sensitive to. After eating do not lie down, allow 3-4 hours before in lie down. And keep the head of bed above 30 degrees to avoid the acid from going up. (7) Right shoulder pain: Code(s): M25.511 - Pain in right shoulder Category: Medical (8) Eczema: Code(s): L30.9 - Dermatitis, unspecified Category: Medical Plan History of Present Illness The patient is an 79-year-old female presenting for a physical examination and management of chronic conditions. She has a history of hypertension, currently managed with losartan hydrochlorothiazide 100/12.5 mg once daily. Her blood pressure is reported to be well-controlled. The patient also has gastroesophageal reflux disease (GERD) and is taking omeprazole for management. She reports occasional regurgitation without significant heartburn. Hypercholesterolemia is another chronic condition, with the patient on lovastatin. Her LDL cholesterol level was 94 mg/dL in the last blood work. The patient has a history of peptic ulcer disease and osteoporosis, with the last bone density test conducted in June 2023. She is on calcium and vitamin D supplementation but has not been consistent with calcium intake. She has impaired glucose tolerance with a hemoglobin A1c of 5.7%. The patient has nephrolithiasis and cholelithiasis, though these have not been symptomatic recently. She also has generalized anxiety disorder and reports stress related to caregiving responsibilities for her sister with dementia. Recently, she has experienced migraines, characterized by visual disturbances and pressure-like headaches, which she manages with Tylenol. 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, contributing to stress Review of Systems - General: Denies fever, weight loss noted but not significant - Cardiovascular: Denies chest pain, palpitations, or syncope - Respiratory: Denies dyspnea or cough - Gastrointestinal: Reports occasional regurgitation, denies nausea, vomiting, or dysphagia - Neurological: Reports migraines with visual disturbances, denies dizziness or balance issues - Musculoskeletal: Reports shoulder pain, denies trauma or falls - Genitourinary: Denies dysuria, nocturia occurs occasionally - Dermatological: Reports dry patches and non-healing sores Physical Exam General: Cooperative, healthy appearing, comfortable, no acute distress and well developed Orientation: Patient oriented x3 Limitations: No limitations Head: Normal to inspection Ears: Hearing grossly normal bilaterally Nose: Normal external nose present Face and sinus: Normal facial exam Eyes: Appearance normal, both eyes and all related structures Neck: Normal visual inspection and Yes full ROM Respiratory: Normal respiratory effort and able to speak in complete sentences. Clear to auscultation bilaterally Cardiovascular: Regular rate and rhythm. Normal S1 and S2 GI: Normal to inspection. Soft to palpation and nontender Skin: No rashes or lesions noted, but patient reports dry patches and two sores that do not seem to heal Neuro: Patient oriented x3 Extremities: Normal to inspection, but patient reports shoulder pain with certain movements, likely tendon inflammation. No trauma or falls reported. Results - Labs: Creatinine 1.05 mg/dL, Hemoglobin A1c 5.7%, LDL 94 mg/dL Plan Patient was informed and verbally consented to the use of an ambient scribe for clinic note documentation during this visit. 1. Hypertension The patient is currently on losartan hydrochlorothiazide 100/12.5 mg once daily for hypertension management, with blood pressure reported as well-controlled. 2. Gastroesophageal Reflux Disease (Gerd) The patient is taking omeprazole for GERD management and reports occasional regurgitation without significant heartburn. 3. Hypercholesterolemia The patient is on lovastatin for hypercholesterolemia, with an LDL cholesterol level of 94 mg/dL, which is below the target of less than 130 mg/dL. 4. Osteoporosis The patient is on calcium and vitamin D supplementation for osteoporosis, with a recommendation to repeat bone density screening. 5. Migraine The patient experiences migraines characterized by visual disturbances and pressure-like headaches, managed with Tylenol. Discussion Notes During the visit, I discussed the management of hypertension, GERD, hypercholesterolemia, osteoporosis, and migraines with the patient. We reviewed the importance of medication adherence and lifestyle modifications, including diet and exercise. I recommended a bone density screening and discussed the benefits of vaccinations, including flu, COVID-19, and shingles vaccines. Patient Instructions - Continue taking prescribed medications as directed. - Schedule and attend a bone density screening. - Maintain a healthy diet and regular exercise routine. - Stay hydrated and monitor for any new symptoms. - Consider receiving recommended vaccinations, including flu and COVID-19 vaccines. Orders: Orders Comprehensive Met. Panel Today Z00.00 - Encounter for general adult medical examination without abnormal findings Lipid Panel Today E78.00 - Pure hypercholesterolemia, unspecified, Z00.00 - Encounter for general adult medical examination without abnormal findings Hemoglobin A1c Today Z00.00 - Encounter for general adult medical examination without abnormal findings Magnesium Today Z00.00 - Encounter for general adult medical examination without abnormal findings XR DEXA axial skeleton Today M81.0 - Age-related osteoporosis without current pathological fracture Complete Blood Count Auto Diff Today Z00.00 - Encounter for general adult medical examination without abnormal findings Free T4 (Free Thyroxine) Today Z00.00 - Encounter for general adult medical examination without abnormal findings Thyroid Stimulating Hormone Today Z00.00 - Encounter for general adult medical examination without abnormal findings UA CC w/rflx Micro + Cult Today R30.0 - Dysuria, Z00.00 - Encounter for general adult medical examination without abnormal findings Vitamin B12 and Folate Today Z00.00 - Encounter for general adult medical examination without abnormal findings Vitamin D 25-OH Total Today Z00.00 - Encounter for general adult medical examination without abnormal findings Referrals Dermatology Referral L30.9 - Dermatitis, unspecified
== END 2025-05-31 11:22 | disposition home or self-care (01) ==
LOC: HO.HMCH 10:18
PROVIDERS: PCP Internal Medicine; Visit Provider Internal Medicine
DX: Z00.00 Encounter for general adult medical examination without abnormal findings (principal); I10 Essential (primary) hypertension; E78.00 Pure hypercholesterolemia, unspecified; R73.01 Impaired fasting glucose; M81.0 Age-related osteoporosis without current pathological fracture; K21.9 Gastro-esophageal reflux disease without esophagitis; M25.511 Pain in right shoulder; L30.9 Dermatitis, unspecified

== ENCOUNTER → 2025-05-31 10:16 | Outpatient (BNVA) | payer OTHER, SELFPAY | PROVIDERS: PCP Internal Medicine; Visit Provider Internal Medicine | DX: Z00.00 Encounter for general adult medical examination without abnormal findings (principal); I10 Essential (primary) hypertension; E78.00 Pure hypercholesterolemia, unspecified; R73.01 Impaired fasting glucose; M81.0 Age-related osteoporosis without current pathological fracture; M25.511 Pain in right shoulder; K21.9 Gastro-esophageal reflux disease without esophagitis; L30.9 Dermatitis, unspecified; G43.909 Migraine, unspecified, not intractable, without status migrainosus; R30.0 Dysuria | CPT/HCPCS: 99397 ==

== ENCOUNTER 2025-06-03 08:42 | Outpatient (REF) | payer OTHER, SELFPAY ==
[2025-06-03 10:17] LABS: MANUAL DIFF FLAG NO
[2025-06-03 10:23] LABS: Appearance Urine Clear; Glucose Urine UA Negative (Negative); PH 6.5 (5.0-9.0); Specific Gravity - Urine 1.020 (1.005-1.025); UMIC TRIGGER UACC YES
[2025-06-03 10:28] LABS: Hematocrit 37.2 % (37.0-47.0); Hemoglobin 12.3 g/dl (12.0-16.0); Imm Gran Abs Auto 0.04 X10*3/uL (0.00-0.03); Imm Gran Pct Auto 0.5 % (0.0-0.4); Lymphocytes Absolute Auto 2.0 X10*3/uL (1.2-4.9); Mean Corpuscular HGB Conc 33.1 g/dl (31.0-35.0); Mean Corpuscular Hemoglobin 31.9 pg (27.0-33.0); Mean Corpuscular Volume 96.4 fL (80.0-98.0); NRBC Abs Auto 0.000 X10*3/uL (0.0-0.012); NRBC Pct Auto 0.0 /100WBC (0.0-0.2); Platelet Count 380 X10*3/uL (160-400); Red Blood Count 3.86 X10*6/uL (4.20-5.50); White Blood Count 8.0 X10*3/uL (4.8-10.8)
[2025-06-03 10:30] LABS: UACC Culture Trigger YES
[2025-06-03 10:34] LABS: Total Hemoglobin (HGBA1C) 3207.3331 umol/L
[2025-06-03 11:20] LABS: Alanine Aminotransferase 18 U/L (0-31); Albumin Level 4.2 g/dL (3.5-5.0); Alkaline Phosphatase 70 U/L (39-117); Anion Gap 12 (12-20); Aspartate Amino Transferase 30 U/L (5-31); Blood Urea Nitrogen 30 mg/dL (9-16); Calcium 9.8 mg/dL (8.4-10.2); Carbon Dioxide 26 mmol/L (22-29); Chloride 109 mmol/L (96-108); Cholesterol 170 mg/dL (<200); Estimated Glomerular Filt Rate 45; HDL Cholesterol 63 mg/dL (>40); Magnesium 1.9 mg/dL (1.6-2.6); Potassium 4.6 mmol/L (3.3-5.1); Sodium 142 mmol/L (135-145); Total Protein 6.7 g/dL (6.5-8.0); Triglycerides 134 mg/dL (<150)
[2025-06-03 11:42] LABS: Free T4 (Free Thyroxine) 1.14 ng/dL (0.71-1.85); Thyroid Stimulating Hormone 1.20 uIU/mL (0.32-4.0)
[2025-06-03 14:20] LABS: Folate 15.0 ng/mL (> or = 4.0); Vitamin B12 1451 pg/mL (200-900)
== END 2025-06-03 08:43 | disposition home or self-care (01) ==
LOC: HO.HMGCLDS 08:42
PROVIDERS: PCP Internal Medicine; Visit Provider Internal Medicine
DX: Z00.00 Encounter for general adult medical examination without abnormal findings (principal); E78.00 Pure hypercholesterolemia, unspecified
CPT/HCPCS: 36415; 80053; 80061; 81001; 82306; 82607; 82746; 83036; 83735; 84439; 84443; 85025; 87086